=== PATIENT | female | born 1990 | race Caucasian/White ===

== ENCOUNTER 2017-01-23 18:13 | Emergency (ER) | payer BC, MEDICAID ==
[~2017-01-23] VITALS: Ht 165.1 cm; Wt 88.0 kg
[~2017-01-23 18:13] MED LIST: IRON PILL; PRENATAL VIT
[2017-01-23 18:16] VITALS: Ht 165.1 cm; Wt 88.0 kg
[2017-01-23] MEDS ORDERED: HYDR-906 PO (18:47)
[2017-01-23] MEDS ORDERED: IBUP-1542 PO (18:47)
[2017-01-23] MEDS ORDERED: PENI500T PO (18:47)
[2017-01-23 18:58] VITALS: BP 128/86; PULSE 66; RESP 20; TEMP 98.7
--- NOTE | 2017-01-23 18:59 | ERD ---
ER Documentation Chief Complaint Chief Complaint Complains of dental pain since yesterday HPI 26-year-old female complains of left lower molar dental pain for the past 2 days. The patient states that this has been recurring for over a year now and she has been told by dentist last year that the tooth needed to be pulled. She has carries to multiple teeth, and this pain is achy, severe and not improving with Tylenol and ibuprofen. The pain radiates her jaw and her head and is causing her headaches. She has no trismus, voice changes or drooling. She denies fevers or chills. ROS All systems reviewed and are negative except as per history of present illness. Medications Home Meds Active Scripts Hydrocodone/Acetaminophen ([place] 5-325 Tablet) 1 Each Tablet, 1 TAB PO Q6H Y for PAIN, #10 TAB Prov:NATALI CARRASCO PA-C 01/23/17 Ibuprofen* (Motrin*) 600 Mg Tab, 600 MG PO Q6, #30 TAB Prov:NATALI CARRASCO PA-C 01/23/17 Penicillin V Potassium* (Penicillin V K*) 500 Mg Tab, 500 MG PO TID for 10 Days , TAB Prov:NATALI CARRASCO PA-C 01/23/17 Reported Medications [Iron Pill] No Conflict Check 03/23/09 [ Vit] No Conflict Check 03/23/09 Allergies Allergies: Coded Allergies: No Known Allergies (Verified Allergy, Mild, 03/23/09) PMhx/Soc History of Surgery: Yes (03/14 NOSE/THROAT ART/VEIN BURNT) Hx Neurological Disorder: No Hx Respiratory Disorders: No Hx Cardiac Disorders: No Hx Miscellaneous Medical Probl: No Hx Alcohol Use: No Hx Substance Use: No Hx Tobacco Use: No Physical Exam Vitals Vital Signs Date Time Temp Pulse Resp B/P Pulse Ox O2 Delivery O2 Flow Rate FiO2 01/23/17 18:16 98.8 92 20 128/86 100 Physical Exam General: Well-developed, well-nourished. The patient appears in no acute distress. HEENT: Head is normocephalic, atraumatic. No scleral icterus. There is no trismus, voice changes or drooling. Multiple caries, the left lower molar is tender to palpation, there is no abscess. No Ans angina. Neck: Supple. Nontender. Lungs: Clear to auscultation. Normal air movement. Heart: Regular rate and rhythm. S1 and S2 are normal. No murmurs, gallops, or rubs. Abdomen: Nondistended. Extremities: No clubbing or cyanosis. Moving extremities x 4. No weakness. Neurologic: Alert and oriented 3. No focal deficits. Normal speech and gait. Skin: Normal turgor. No rash or lesions. Results 24 hrs Current Medications Medications (Trade) Dose Ordered Sig/Edil Route PRN Reason Start Time Stop Time Status Last Admin Dose Admin Acetaminophen/ Hydrocodone Bitart ([place] (5/325)) 1 tab ONCE ONCE PO 01/23/17 19:00 01/23/17 19:01 Procedures/MDM 26-year-old female presents with dental pain, there is no evidence of dental abscess, retropharyngeal abscess, Nas's angina. Patient at this time will be discharged home with antibiotics and pain medication. She was asked to follow-up with a dentist in the next 1-2 days. Departure Diagnosis: Primary Impression: Toothache Condition: Good Patient Instructions: Dental Pain Additional Instructions: Please follow-up with your dentist tomorrow. Return sooner if any worsening or new symptoms. NATALI CARRASCO PA-C Jan 23, 2017 18:59
[2017-01-23] MEDS ORDERED: HYDROCODONE/APAP (5/325) TAB PO ONE (19:00)
== END 2017-01-23 19:00 | disposition home or self-care (01) ==
LOC: FTE 18:13
DX: K08.89 Other specified disorders of teeth and supporting structures (principal)
CPT/HCPCS: Z7502; Z7610; 99284

== ENCOUNTER 2017-02-13 14:02 | Emergency (ER) | END 2017-02-13 17:17 | disposition home or self-care (01) | DX: S81.802A Unspecified open wound, left lower leg, initial encounter (principal); F17.210 Nicotine dependence, cigarettes, uncomplicated; R07.9 Chest pain, unspecified; W34.00XA Accidental discharge from unspecified firearms or gun, initial encounter; Y92.9 Unspecified place or not applicable; Z23 Encounter for immunization | CPT/HCPCS: 36415; 71010; 71270; 73550; 73590; 74178; 80053; 83690; 84484; 85025; 85610; 85730; 86850; 86870; 86900; 86901; 86902; 90471; 90715; 93926; 96374; 96375; J0690; J1170; J2270; J2405; J7030; Q9967; Z7502; Z7610 ==

== ENCOUNTER 2017-12-23 20:45 | Emergency (ER) | END 2017-12-23 23:37 | disposition home or self-care (01) ==